=== PATIENT | female | born 1990 | race African-American/Black ===

== ENCOUNTER 2017-02-01 08:34 | Emergency (ER) | payer MEDICAID ==
[~2017-02-01] VITALS: Ht 165.1 cm; Wt 75.0 kg
[2017-02-01 08:53] VITALS: BP 121/75
== END 2017-02-01 10:20 | disposition home or self-care (01) ==
LOC: ER 10:19
DX: J02.9 Acute pharyngitis, unspecified (principal); J45.909 Unspecified asthma, uncomplicated; Z88.8 Allergy status to other drugs, medicaments and biological substances
CPT/HCPCS: 99283